=== PATIENT | female | born 1945 | race Caucasian/White ===

== ENCOUNTER 2025-01-27 18:55 | Outpatient (CLI) | payer OTHER, SELFPAY | END 2025-01-27 18:56 | disposition home or self-care (01) | LOC: AMB 02-21 02:28 | PROVIDERS: Visit Provider Internal Medicine | DX: F10.129 Alcohol abuse with intoxication, unspecified (principal); R41.82 Altered mental status, unspecified | CPT/HCPCS: A0998 ==